=== PATIENT | male | born 1965 | race Caucasian/White ===

== ENCOUNTER 2016-08-14 06:39 | Day surgery (SDC) | payer BC ==
[2016-08-10 16:19] VITALS: BMI 33.6
[2016-08-14] MEDS ORDERED: MIDAZOLAM HCL 2 MG/2 ML SINGLE DOSE VIAL ONE (08:17)
[2016-08-14] MEDS ORDERED: PROPOFOL 20 ML ONE (08:17)
[2016-08-14] MEDS ORDERED: SUCCINYLCHOLINE CHLORIDE 200 MG/10 ML VIAL ONE (08:17)
[2016-08-14] MEDS ORDERED: BUPIVACAINE HCL/PF 2.5 MG/ML - 30 ML VIAL IJ ONE (08:49)
[2016-08-14] MEDS ORDERED: LIDOCAINE HCL 2% 100 MG/5 ML DISP.SYRIN ONE (09:01)
[2016-08-14] MEDS ORDERED: DEXAMETHASONE SOD PHOSPHATE 4 MG/1 ML VIAL ONE (09:05)
[2016-08-14] MEDS ORDERED: ceFAZolin SODIUM 1 GM VIAL ONE (09:05)
[2016-08-14] MEDS ORDERED: KETOROLAC TROMETHAMINE 30 MG/1 ML VIAL ONE (09:13)
[2016-08-14] MEDS ORDERED: BUPIVACAINE HCL/PF 0.25% (2.5MG/ML) 10 ML VIAL IJ ONE (09:55)
[2016-08-14] MEDS ORDERED: ONDANSETRON 4 MG/2 ML VIAL IVPUSH PRN (10:03)
[2016-08-14] MEDS ORDERED: oxyCODONE HCL 5 MG TABLET PO PRN (10:03)
[2016-08-14] MEDS ORDERED: PROMETHAZINE HCL 25 MG/1 ML VIAL IVPUSH PRN (10:03)
[2016-08-14] MEDS ORDERED: LACTATED RINGERS SOLUTION 1,000 ML IV SCH (10:15)
[2016-08-14 10:21] VITALS: TEMP 97.6
[2016-08-14 11:32] VITALS: BP 129/79; PULSE 73
--- NOTE | 2016-08-16 19:40 | OP ---
DATE OF OPERATION: 08/14/2016 LOCATION: [facility]. SURGEON: Panchito Raya MD IMAGE EDITOR: SCARLETT Obrien PREOPERATIVE DIAGNOSES: 1. Left knee mediolateral meniscal tear. 2. Left knee cartilage injury, left knee synovitis. POSTOPERATIVE DIAGNOSES: 1. Left knee mediolateral meniscal tear. 2. Left knee cartilage injury, left knee synovitis. PROCEDURE: 1. Left knee arthroscopy with partial meniscectomy, medial and lateral meniscus. 2. Left knee arthroscopy with chondroplasty and abrasion-plasty. 3. Left knee arthroscopy with synovectomy, major. CPT CODES: 40744, [id number], [id number]. FINDINGS: 1. Medial meniscus body and horn tear. 2. Lateral meniscus posterior horn and body tear. 3. Synovitis, patellofemoral, and mediolateral notch area. 4. Medial grade 4 changes, medial tibial plateau, with surrounding grade 1 to 2 changes. 5. ACL and PCL intact. 6. Diffuse grade 2 to 3 cartilage injury, lateral joint line. 7. Central grade 2 to 4 cartilage injury, patellofemoral trochlea and patellofemoral joint. PROCEDURE: Informed consent was obtained. The patient was taken to the operating room where the left lower extremity was prepped and draped in a sterile fashion. A tourniquet was placed on the left upper thigh but not inflated. Using standard arthroscopic technique, a lateral incision and portal were made which allowed for introduction of the camera into the suprapatellar bursa. This was then taken to the medial joint line where under direct visualization, a medial incision and portal were made. Excessive synovium noted in the medial, lateral, patellofemoral and notch area was removed by the up-biting shaver and Bovie cautery. This was found to bring inflammatory tissue into the joint surface, a source of joint pain and dysfunction. Probing of the medial and lateral meniscus found tears described in the findings. These were removed with an up-biting shaver and taken back to a stable rim. Grade 2-3 degenerative changes were treated with chondroplasty, removing all flaking surfaces with low setting Bovie used along the periphery. Grade 4 changes were treated with abrasion-plasty. All areas of the knee were once again re-examined. The knee was then drained. A single suture was placed on all portals. Sterile dressing was placed. PANCHITO RAYA M.D. [id number]
--- NOTE | 2016-08-19 14:45 | PATH ---
Surgical Pathology Report Patient Name: WILIAM BLOOD Med. Rec. #: [id number] /Age/Gender: 1965 (Age: 50) / M Account: [id number] Location: [facility] AMBULATORY Taken: 08/14/2016 Received: 08/14/2016 Reported: 08/19/2016 Physicians: Jeff Cotto M.D. Specimen(s) Received LEFT KNEE SHAVINGS Clinical History Left knee internal derangement Final Diagnosis KNEE, LEFT, ARTHROSCOPIC SHAVINGS: FIBROSYNOVIAL TISSUE, CARTILAGE AND SCANT BONE. Electronically Signed Brianna Huff M.D. Gross Description Received in formalin, labeled "left knee shavings," is a 3.5 x 3.0 x 0.3 cm. aggregate of cristobal-yellow soft tissue fragments. A retail account representative portion is submitted in one cassette. /08/14/201608/14/2016
== END 2016-08-14 11:30 | disposition home or self-care (01) ==
LOC: FASU 06:39
PROVIDERS: ATTEND Orthopaedic Surgery
PROC: 0SBD4ZZ Excision of Left Knee Joint, Percutaneous Endoscopic Approach (ICD-10-PCS; 2016-08-14)
PROC: 0SBD4ZZ Excision of Left Knee Joint, Percutaneous Endoscopic Approach (ICD-10-PCS; 2016-08-14)
PROC: 0SBD4ZZ Excision of Left Knee Joint, Percutaneous Endoscopic Approach (ICD-10-PCS; principal; 2016-08-14 09:20)
DX: S83.242A Other tear of medial meniscus, current injury, left knee, initial encounter (principal); S83.282A Other tear of lateral meniscus, current injury, left knee, initial encounter; S83.8X2A Sprain of other specified parts of left knee, initial encounter; M65.862 Other synovitis and tenosynovitis, left lower leg; X58.XXXA Exposure to other specified factors, initial encounter; Y93.9 Activity, unspecified; Y92.9 Unspecified place or not applicable
CPT/HCPCS: 88304-TC; 94760